=== PATIENT | female | born 1990 | race Caucasian/White ===

== ENCOUNTER 2022-10-06 19:51 | Emergency (ER) | payer MEDICAID ==
[~2022-10-06] VITALS: Ht 162.6 cm; Wt 79.4 kg
[2022-10-06] MEDS ORDERED: KETOROLAC 60MG/2ML VIAL IM ONE (22:30)
[2022-10-06] MEDS ORDERED: CYCL10TA21 MT (22:33)
[2022-10-06] MEDS ORDERED: IBUP-2029 MT (22:33)
[2022-10-06 23:04] VITALS: BP 116/78
== END 2022-10-06 23:05 | disposition home or self-care (01) ==
LOC: ER 20:40
DX: M54.30 Sciatica, unspecified side (principal)
CPT/HCPCS: 81025; 96372; 99283; J1885